=== PATIENT | female | born 1930 | race Caucasian/White ===

== ENCOUNTER → 2018-03-20 | Outpatient (CLI) | payer OTHER ==
[~2018-03-20] MED LIST: AMLO5 PO; FURO80 PO; NEBI10 PO; POTA10T PO; QUIN10 PO; WARF2 PO
== END | disposition home or self-care (01) ==
LOC: LAB SHORT 14:20 → PLD 14:20
DX: C44.319 Basal cell carcinoma of skin of other parts of face (principal)
CPT/HCPCS: 88305

== ENCOUNTER 2018-07-06 18:59 | Emergency (ER) | payer OTHER ==
[~2018-07-06] VITALS: Ht 162.6 cm; Wt 55.3 kg
[2018-07-06] MEDS ORDERED: SPIR25 PO (19:31)
[2018-07-06] MEDS ORDERED: FURO20 PO (19:43)
[2018-07-06 20:21] LABS: BASOPHILS ABSOLUTE AUTO 0.02 K/mm3 (0.00-0.23); BASOPHILS PERCENT AUTO 1 % (0-2); EOSINOPHILS ABSOLUTE AUTO 0.18 K/mm3 (0.00-0.68); EOSINOPHILS PERCENT AUTO 4 % (0-6); Hematocrit 38.2 % (33.0-51.0); Hemoglobin 12.4 g/dL (11.5-16.0); IMMATURE GRAN ABSOLUTE AUTO 0.01 K/mm3 (0.00-0.10); IMMATURE GRAN PERCENT AUTO 0 % (0-1); LYMPHOCYTES ABSOLUTE AUTO 0.86 K/mm3 (0.84-5.20); LYMPHOCYTES PERCENT AUTO 21 % (21-46); MONOCYTES ABSOLUTE AUTO 0.66 K/mm3 (0.16-1.47); MONOCYTES PERCENT AUTO 16 % (4-13); Mean Corpuscular HGB 30.5 pg (26.0-34.0); Mean Corpuscular HGB Conc 32.5 g/dL (31.5-36.5); Mean Corpuscular Volume 94 fL (80-100); Mean Platelet Volume 11.2 fL (9.1-12.4); NEUTROPHILS ABSOLUTE AUTO 2.41 K/mm3 (1.96-9.15); NEUTROPHILS PERCENT AUTO 58 % (41-73); Platelet Count 116 K/mm3 (150-400); RDW Coefficient Variation 12.1 % (11.7-14.2); RDW Standard Deviation 41.7 fL (35.1-46.3); Red Blood Cell Count 4.07 M/mm3 (3.80-5.20); White Blood Cell Count 4.14 K/mm3 (4.00-11.30)
[2018-07-06 20:36] LABS: Bun/Creatinine Ratio 30.7 (12.0-20.0); Calcium, Blood 8.3 mg/dL (8.5-10.1); Creatinine, Blood 1.5 mg/dL (0.40-1.00); Potassium, Blood 4.3 mmol/L (3.5-5.5)
[2018-07-06 20:45] LABS: Influenza A Positive (NEGATIVE); Influenza B Negative (NEGATIVE)
[2018-07-06] MEDS ORDERED: Mucinex600 MG PO (21:06)
[2018-07-06] MEDS ORDERED: Augmentin 875-1 EACH PO (21:06)
== END 2018-07-06 21:20 | disposition home or self-care (01) ==
LOC: ER 18:59
PROVIDERS: Emergency Medicine
DX: J40 Bronchitis, not specified as acute or chronic (principal); J10.1 Influenza due to other identified influenza virus with other respiratory manifestations; I10 Essential (primary) hypertension; Z79.01 Long term (current) use of anticoagulants; Z79.899 Other long term (current) drug therapy; Z86.73 Personal history of transient ischemic attack (TIA), and cerebral infarction without residual deficits
CPT/HCPCS: 36415; 71046; 80048; 85025; 87804; 99283-25

== ENCOUNTER → 2018-07-24 | Outpatient (CLI) | payer OTHER ==
[~2018-07-24] MED LIST changes: +Augmentin 875-1 EACH PO; +FURO20 PO; +Mucinex600 MG PO; +SPIR25 PO
[2018-07-24 16:03] LABS: Source, Urine Clean Catch
[2018-07-24 17:57] LABS: Bilirubin, Urine Neg (Neg); Blood, Urine Neg (Neg); Glucose Qualitative, Urine Neg (Neg); Ketones, Urine Neg (Neg); Leukocyte Esterase, Urine Neg (Neg); Nitrite, Urine Neg (Neg); Protein, Urine Neg (Neg); Specific Gravity, Urine 1.015 (1.003-1.022); Urobilinogen, Urine NORM (Normal)
[2018-07-24 18:09] LABS: Appearance, Urine Clear (Clear); Color, Urine Yellow (P-Yellow)
== END | disposition home or self-care (01) ==
LOC: LAB 16:00 → LAB SHORT 16:00
PROVIDERS: Internal Medicine
DX: R35.0 Frequency of micturition (principal)
CPT/HCPCS: 81003

== ENCOUNTER 2018-11-28 15:48 | Observation (INO) | payer OTHER ==
[~2018-11-28] VITALS: Ht 162.6 cm; Wt 56.7 kg
[2018-11-28 16:25] LABS: BASOPHILS ABSOLUTE AUTO 0.07 K/mm3 (0.00-0.23); BASOPHILS PERCENT AUTO 1 % (0-2); EOSINOPHILS PERCENT AUTO 6 % (0-6); Hematocrit 34.5 % (33.0-51.0); Hemoglobin 11.2 g/dL (11.5-16.0); IMMATURE GRAN ABSOLUTE AUTO 0.03 K/mm3 (0.00-0.10); IMMATURE GRAN PERCENT AUTO 0 % (0-1); LYMPHOCYTES ABSOLUTE AUTO 1.67 K/mm3 (0.84-5.20); LYMPHOCYTES PERCENT AUTO 20 % (21-46); MONOCYTES ABSOLUTE AUTO 0.79 K/mm3 (0.16-1.47); MONOCYTES PERCENT AUTO 9 % (4-13); Mean Corpuscular HGB 30.4 pg (26.0-34.0); Mean Corpuscular HGB Conc 32.5 g/dL (31.5-36.5); Mean Corpuscular Volume 94 fL (80-100); Mean Platelet Volume 11.8 fL (9.1-12.4); NEUTROPHILS ABSOLUTE AUTO 5.52 K/mm3 (1.96-9.15); NEUTROPHILS PERCENT AUTO 64 % (41-73); Platelet Count 160 K/mm3 (150-400); RDW Coefficient Variation 13.2 % (11.7-14.2); RDW Standard Deviation 45.2 fL (35.1-46.3); Red Blood Cell Count 3.68 M/mm3 (3.80-5.20); White Blood Cell Count 8.58 K/mm3 (4.00-11.30)
[2018-11-28 16:45] LABS: Albumin, Blood 3.5 g/dL (3.4-5.0); Bilirubin, Total 0.2 mg/dL (0.1-1.0); Bun/Creatinine Ratio 72.3 (12.0-20.0); Calcium, Blood 9.7 mg/dL (8.5-10.1); Creatinine, Blood 1.55 mg/dL (0.40-1.00); Globulin, Blood 3.6 g/dL (2.2-4.0); Potassium, Blood 4.5 mmol/L (3.5-5.5); Total Protein, Blood 7.1 g/dL (6.4-8.2)
[2018-11-28 16:49] LABS: International Normalized Ratio 2.99; Prothrombin Time Results 28.7 Sec (9.7-11.5)
[2018-11-28 17:16] LABS: Source, Urine Catheter
[2018-11-28] MEDS ORDERED: WARF3 PO (17:24)
[2018-11-28] MEDS ORDERED: Quinapril HCl40 MG PO (17:25)
[2018-11-28] MEDS ORDERED: Bystolic20 MG PO (17:26)
[2018-11-28 17:52] LABS: Bilirubin, Urine Neg (Neg); Blood, Urine Neg (Neg); Glucose Qualitative, Urine Neg (Neg); Ketones, Urine Neg (Neg); Leukocyte Esterase, Urine Neg (Neg); Nitrite, Urine Neg (Neg); Protein, Urine Neg (Neg); Urobilinogen, Urine NORM (Normal)
[2018-11-28 18:14] LABS: Appearance, Urine Clear (Clear); Color, Urine Yellow (P-Yellow)
--- NOTE | 2018-11-29 04:11 | NUR ---
11/28/181999 PT ADMITTED TO ROOM 361 PER STRETCHER FROM ER. PT ALERT AND ORIENTED X 3 AND AMBULATED INTO BATHROOM AND BACK VIA WALKER WITH GAIT SLOW AND STEADY X 1 STANDBY ASSIST. PT DENIES CHEST PAIN OR NAUSEA.
--- NOTE | 2018-11-29 04:13 | NUR ---
SHIFT SUMMARY: 88 Y/O FEMALE RESTED COMFORTABLY ALL MORNING IN BED. PT HAD NO MORE STOOLS. PT ALERT AND ORIENTED X 4. PT DENIES PAIN OR NAUSEA. PTS BED ALARM ACTIVATED, BED LOW POSITION, CALL LIGHT AT SIDE.
[2018-11-29 05:13] LABS: BASOPHILS ABSOLUTE AUTO 0.05 K/mm3 (0.00-0.23); BASOPHILS PERCENT AUTO 1 % (0-2); EOSINOPHILS ABSOLUTE AUTO 0.45 K/mm3 (0.00-0.68); EOSINOPHILS PERCENT AUTO 8 % (0-6); Hematocrit 29.5 % (33.0-51.0); Hemoglobin 9.4 g/dL (11.5-16.0); IMMATURE GRAN ABSOLUTE AUTO 0.02 K/mm3 (0.00-0.10); IMMATURE GRAN PERCENT AUTO 0 % (0-1); LYMPHOCYTES ABSOLUTE AUTO 1.23 K/mm3 (0.84-5.20); LYMPHOCYTES PERCENT AUTO 23 % (21-46); MONOCYTES ABSOLUTE AUTO 0.77 K/mm3 (0.16-1.47); MONOCYTES PERCENT AUTO 14 % (4-13); Mean Corpuscular HGB 30.7 pg (26.0-34.0); Mean Corpuscular HGB Conc 31.9 g/dL (31.5-36.5); Mean Corpuscular Volume 96 fL (80-100); Mean Platelet Volume 11.9 fL (9.1-12.4); NEUTROPHILS ABSOLUTE AUTO 2.91 K/mm3 (1.96-9.15); NEUTROPHILS PERCENT AUTO 54 % (41-73); Platelet Count 131 K/mm3 (150-400); RDW Coefficient Variation 13.3 % (11.7-14.2); RDW Standard Deviation 46.5 fL (35.1-46.3); Red Blood Cell Count 3.06 M/mm3 (3.80-5.20); White Blood Cell Count 5.43 K/mm3 (4.00-11.30)
[2018-11-29 05:37] LABS: Albumin, Blood 2.7 g/dL (3.4-5.0); Albumin/Globulin Ratio 0.9 (0.8-1.8); Bilirubin, Total 0.2 mg/dL (0.1-1.0); Bun/Creatinine Ratio 62.4 (12.0-20.0); Calcium, Blood 8.5 mg/dL (8.5-10.1); Creatinine, Blood 1.49 mg/dL (0.40-1.00); Globulin, Blood 2.9 g/dL (2.2-4.0); Potassium, Blood 4.6 mmol/L (3.5-5.5); Total Protein, Blood 5.6 g/dL (6.4-8.2)
[2018-11-29 12:21] LABS: Hematocrit 31.3 % (33.0-51.0); Hemoglobin 9.9 g/dL (11.5-16.0)
--- NOTE | 2018-11-29 15:13 | NUR ---
11/29/18 1513 Vandana Vera History, Chart, Medications and Allergies reviewed before start of procedure. 3-LEAD EKG REVIEWED WITH PHYSICIAN PRIOR TO START OF PROCEDURE. MONITOR INTACT WITH CONTINUOUS PULSE OXIMETRY AND INTERMITTENT BP. O2 VIA N/C INTACT THROUGHOUT SEDATION/PROCEDURE. PATIENT DETERMINED TO BE ASA APPROPRIATE FOR PROPOFOL SEDATION PRIOR TO START OF PROCEDURE BY DR. MCDONALD.
--- NOTE | 2018-11-29 15:31 | NUR ---
SHE IS LEAVING FOR DAY SURGERY NOW FOR AN EGD. SHE ATE A REGULAR BREAKFAST. SAW HER JUST AFTERWARDS. HE ORDERED CL'S THEN NPO AT 1300 WHICH WE DID. SHE IS A&O. SHE HAS A HEARING AIDE AND ALL HER OWN TEETH. SHE AMBULATES WELL IN ROOM. HER HAS VISITED X2. SHE HAS NAPPED TO PASS THE TIME. SHE HAS HAD NO COMPLAINTS. A FORMED STOOL WAS DARK BROWN, POSSIBLY SOME BLACK?
--- NOTE | 2018-11-29 16:50 | NUR ---
RETURNED FROM DAY SURGERY POST EGD. SHE IS ALERT. SHE WAS A LITTLE INCONTINENT OF URINE. TO THE BATHROOM. WILL NOTIFY OF PAUSES DURING PROCEDURE.
--- NOTE | 2018-11-29 18:09 | NUR ---
SHE IS STABLE POST EGD. REGULAR DIET HAS BEEN ORDERED. PO PROTONIX HAS BEEN STARTED. I SPOKE WITH ABOUT MARCELLUS'S PAUSES DURING THE EGD. ORDERS RECEIVED. COREG HELD TONIGHT ONLY. CBC ORDERED FOR AM. PATIENT WITHOUT COMPLAINTS.
--- NOTE | 2018-11-30 03:56 | NUR ---
SHIFT SUMMARY: 88 Y/O FEMALE RESTED COMFORTABLY ALL SHIFT WITH NO C/O PAIN, NAUSEA AND NO BLOODY STOOLS NOTED. PT ALERT AND ORIENTED X 3, ABLE TO FOLLOW ALL SIMPLE VERBAL COMMANDS. PT HAPPY AND COOPERATIVE. PTS BED LOW POSITION, CALL LIGHT AT SIDE.
[2018-11-30 04:54] LABS: BASOPHILS ABSOLUTE AUTO 0.06 K/mm3 (0.00-0.23); BASOPHILS PERCENT AUTO 1 % (0-2); EOSINOPHILS ABSOLUTE AUTO 0.39 K/mm3 (0.00-0.68); EOSINOPHILS PERCENT AUTO 6 % (0-6); Hematocrit 30.4 % (33.0-51.0); Hemoglobin 9.7 g/dL (11.5-16.0); IMMATURE GRAN ABSOLUTE AUTO 0.02 K/mm3 (0.00-0.10); IMMATURE GRAN PERCENT AUTO 0 % (0-1); LYMPHOCYTES ABSOLUTE AUTO 1.21 K/mm3 (0.84-5.20); LYMPHOCYTES PERCENT AUTO 19 % (21-46); MONOCYTES PERCENT AUTO 11 % (4-13); Mean Corpuscular HGB 30.4 pg (26.0-34.0); Mean Corpuscular HGB Conc 31.9 g/dL (31.5-36.5); Mean Corpuscular Volume 95 fL (80-100); Mean Platelet Volume 11.8 fL (9.1-12.4); NEUTROPHILS ABSOLUTE AUTO 4.15 K/mm3 (1.96-9.15); NEUTROPHILS PERCENT AUTO 64 % (41-73); Platelet Count 135 K/mm3 (150-400); RDW Coefficient Variation 13.3 % (11.7-14.2); RDW Standard Deviation 45.8 fL (35.1-46.3); Red Blood Cell Count 3.19 M/mm3 (3.80-5.20); White Blood Cell Count 6.53 K/mm3 (4.00-11.30)
[2018-11-30] MEDS ORDERED: PANT40 PO (10:42)
--- NOTE | 2018-11-30 11:33 | NUR ---
DISCHARGED TO HOME AT 1125 WITH HER . SHE WOKE UP WITH MILD NAUSEA. IT WENT AWAY EASILY. SHE ATE A REGULAR BREAKFAST WELL WITHOUT ANY PROBLEMS DURING OR AFTERWARDS. CBE STABLE. NO FEVERS OR DIZZINESS. SHE SAYS SHE IS CHRONICALLY MILDLY SOB. NO SIGNS OF BLEEDING. RX FAXED TO [facility]. SHE UNDERSTANDS TO NOT RESTART HER COUMADIN OR ASPIRIN UNTIL INSTRUCTS HER THIS WEEK. SHE WILL GO TO A LAB IN [place] ON TUES. AM FOR A CBC.
--- NOTE | 2018-11-30 12:50 | NUR ---
I REALIZED THAT [facility] WILL NOT BE OPEN TOMORROW ON . I CALLED THE PATIENT AT HOME. HER CHOSE [facility] [address]. I FAXED HER RX TO [facility]. THEY WILL PICK IT UP IN THE MORNING.
== END 2018-11-30 11:25 | disposition home or self-care (01) ==
LOC: ER 15:48 → MEDS 15:49 → ENPENDDIS 11-30 08:43 → MEDS 11-30 11:25
PROVIDERS: Emergency Medicine; Internal Medicine Gastroenterology; Physician Assistant; ADMIT Hospitalist
PROC: 0DB68ZX Excision of Stomach, Via Natural or Artificial Opening Endoscopic, Diagnostic (ICD-10-PCS; principal; 2018-11-29 16:00)
DX: K25.4 Chronic or unspecified gastric ulcer with hemorrhage (principal); D50.0 Iron deficiency anemia secondary to blood loss (chronic); K44.9 Diaphragmatic hernia without obstruction or gangrene; I10 Essential (primary) hypertension; I48.91 Unspecified atrial fibrillation; R00.1 Bradycardia, unspecified; I95.9 Hypotension, unspecified; K22.8 Other specified diseases of esophagus; K22.2 Esophageal obstruction; Z86.73 Personal history of transient ischemic attack (TIA), and cerebral infarction without residual deficits; Z79.01 Long term (current) use of anticoagulants; Z79.899 Other long term (current) drug therapy
CPT/HCPCS: 36415; 80053; 81003; 82550; 85014; 85018; 85025; 85610; 88305; 88342; 93005; 93010; 96361; 96365; 96376; 99285-25; C9113; G0378; J2704; J7030; J7120

== ENCOUNTER 2018-11-30 21:22 | Emergency (ER) | payer OTHER ==
[~2018-11-30] VITALS: Ht 162.6 cm; Wt 56.7 kg
[~2018-11-30 21:22] MED LIST changes: +Bystolic20 MG PO; +PANT40 PO; +Quinapril HCl40 MG PO; +WARF3 PO
[2018-11-30 22:48] LABS: Hematocrit 32.2 % (33.0-51.0); Hemoglobin 10.4 g/dL (11.5-16.0)
== END 2018-11-30 23:52 | disposition home or self-care (01) ==
LOC: ER 21:22
PROVIDERS: Physician Assistant
DX: R19.7 Diarrhea, unspecified (principal); Z79.899 Other long term (current) drug therapy; I10 Essential (primary) hypertension
CPT/HCPCS: 36415; 85014; 85018; 99283